=== PATIENT | male | born 2000 | race Two or more races ===

== ENCOUNTER 2022-02-14 21:56 | Emergency (ER) | payer SELFPAY ==
[2022-02-14] MEDS ORDERED: Lidocaine 1% 10 ML MDV INJECT ONE (23:46)
[2022-02-14] MEDS ORDERED: Bupivacaine 0.5% 10 ML SDV INJECT ONE (23:46)
[2022-02-15] MEDS ORDERED: Ibuprofen 600 MG Tab PO ONE (01:14)
== END 2022-02-15 02:15 | disposition home or self-care (01) ==
LOC: JD.ED 21:56
DX: S01.511A Laceration without foreign body of lip, initial encounter (principal); S01.81XA Laceration without foreign body of other part of head, initial encounter; S03.2XXA Dislocation of tooth, initial encounter; W22.01XA Walked into wall, initial encounter
CPT/HCPCS: 12013; 99283; A9270; J3490